=== PATIENT | female | born 1955 | race Caucasian/White ===

== ENCOUNTER 2017-03-28 06:16 | Day surgery (SDC) | payer BC ==
[~2017-03-28] VITALS: Ht 154.9 cm; Wt 60.8 kg
[2017-03-28 06:52] VITALS: Ht 154.9 cm; Wt 60.8 kg
[2017-03-28] MEDS ORDERED: NO MEDS. (07:00)
[2017-03-28 08:02] VITALS: BP 115/65; PULSE 70; RESP 16
--- NOTE | 2017-03-28 08:33 | OPPN ---
Date/Time of Note Date/Time of Note DATE: 03/28/17 TIME: 08:30 Operative Report Preoperative Diagnosis Screening Postoperative Diagnosis Internal hemorrhoids No colon neoplasm was identified Operation/Procedure Performed Colonoscopy Surgeon see signature line employment legal assistant None Anesthesia: moderate sedation Estimated blood loss: none Transfusion Required none Specimen None Grafts/Implants none Complications none MIGUEL ÁNGEL TENORIO MD Mar 28, 2017 08:33
[2017-03-28] MEDS ORDERED: FENTAnyl 50 MCG/ML VIAL ONE (08:57)
[2017-03-28] MEDS ORDERED: MIDAZOLAM 1 MG/ML 2 ML INJ ONE ×2 (08:57)
[2017-03-28 09:01] VITALS: BP 102/59; RESP 14
--- NOTE | 2017-03-28 12:11 | GILP ---
DATE OF PROCEDURE: NAME OF PROCEDURE: Colonoscopy. SURGEON: Miguel Ángel Dorsey MD PREOPERATIVE DIAGNOSIS: Screening colonoscopy. POSTOPERATIVE DIAGNOSES 1. Colonoscopy all the way to the cecum. 2. Internal hemorrhoids. 3. No colon neoplasm was identified. INDICATION FOR THE PROCEDURE: Ms. Esperanza Mckenzie is a 61-year-old female patient who was schedul ed for screening colonoscopy. The procedure and possible complications are well explained to the patient, she understood and conse nted to the procedure. DESCRIPTION OF PROCEDURE: Under the influence of fentanyl and Versed, the colonoscope was carefully introduced in the rectum and under direct vision it was advanced all the way to the cecum. FINDINGS: The patient had a redundant colon. She was noted to have internal hemorrhoids. No colon neoplasm was identified. She tolerated the procedure very well and there was no complication from the procedure. At the end of the procedures, she was awake with stable vital signs and she was discharged home to the care of her family. IMPRESSION: 1. Colonoscopy all the way to the cecum. 2. Redundant colon. 3. Internal hemorrhoids. 4. No colon neoplasm was identified. PLAN: Next screening colonoscopy in 10 years. Dictated By: MIGUEL ÁNGEL AGUIAR/CULLEN Conf#: [id number] DID#: [id number]
== END 2017-03-28 13:02 | disposition home or self-care (01) ==
LOC: GIL 06:16
PROVIDERS: ATTEND Internal Medicine Gastroenterology
DX: Z12.11 Encounter for screening for malignant neoplasm of colon (principal); K64.8 Other hemorrhoids
CPT/HCPCS: 45378; J2250; J3010; Z7610